=== PATIENT | female | born 1965 ===

== ENCOUNTER 2017-12-04 09:40 | Emergency (ER) | payer OTHER ==
[2017-12-04 09:40] VITALS: BMI 28.3
--- NOTE | 2017-12-04 09:57 | ED PDOC ---
Lower Extremity Pain/Injury Time Seen by Provider: 12/04/17 09:43 History Per: Patient Onset/Duration Of Symptoms: Other (3 weeks) Current Symptoms Are (Timing): Still Present Severity: Mild Pain Scale Rating Of: 2 Additional Complaint(s): s/p fx 5th phalanx right foot, seen in ED with +ve xrays. Still c/o pain Past Medical History Vital Signs: Last Vital Signs Temp 98.4 F 12/04/17 09:43 Pulse 82 12/04/17 09:43 Resp 18 12/04/17 09:43 BP 116/78 12/04/17 09:43 Pulse Ox 96 12/04/17 09:43 - Medical History PMH: HTN, Migraine Denies: Chronic Kidney Disease - Family History Family History: States: Unknown Family Hx - Immunization History Hx Tetanus Toxoid Vaccination: No Hx Influenza Vaccination: No Hx Pneumococcal Vaccination: No - Home Medications Home Medications: Ambulatory Orders Medication Instructions Recorded traMADol [Ultram] 50 mg PO TID PRN #12 tab 11/17/17 - Allergies Allergies/Adverse Reactions: Allergies Allergy/AdvReac Type Severity Reaction Status Date / Time aspirin Allergy RASH Verified 12/04/17 10:01 ibuprofen Allergy RASH Verified 12/04/17 10:01 Review of Systems Musculoskeletal: Positive for: Foot Pain Physical Exam - Physical Exam Appears: Positive for: Non-toxic, No Acute Distress Skin: Positive for: Normal Color, Warm, DRY Extremity: Positive for: Normal ROM. Negative for: Tenderness, Deformity, Swelling - ECG O2 Sat by Pulse Oximetry: 96 Disposition - Clinical Impression Clinical Impression: Toe fracture - Patient ED Disposition Is Patient to be Admitted: No Counseled Patient/Family Regarding: Studies Performed, Diagnosis, Need For Followup - Disposition Referrals: Podiatry Clinic [Outside] Disposition: Routine/Home Disposition Time: 11:17 Condition: FAIR Instructions: Toe Fracture Print Language: ROMANIAN
--- NOTE | 2017-12-04 10:36 | RAD ---
Date of service: 12/04/2017 PROCEDURE: Right foot HISTORY: s/p fx COMPARISON: Not available TECHNIQUE: Three views right foot FINDINGS: Healing fracture mid 5th proximal phalangeal diaphysis. There is a small amount of callus seen about the fracture. No other fracture is identified. The joint spaces and articular surfaces are preserved. No soft tissue abnormality is identified. IMPRESSION: Healing fracture mid 5th proximal phalangeal diaphysis.
[2017-12-04 11:58] VITALS: BP 133/87; PULSE 65; RESP 16; TEMP 97.8; O2SAT 100
== END 2017-12-04 11:55 | disposition home or self-care (01) ==
LOC: H.ER 09:40
DX: S92.901A Unspecified fracture of right foot, initial encounter for closed fracture (principal); Y92.89 Other specified places as the place of occurrence of the external cause; I10 Essential (primary) hypertension

== ENCOUNTER 2018-04-07 10:28 | Emergency (ER) | payer SELFPAY ==
[2018-04-07 10:28] VITALS: BMI 28.9
[2018-04-07 10:42] VITALS: RESP 18
--- NOTE | 2018-04-07 11:35 | ED PDOC ---
HPI: General Adult Time Seen by Provider: 04/07/18 11:00 Chief Complaint (Nursing): Back Pain Chief Complaint (Provider): Sinus pain and congestion History Per: Patient History/Exam Limitations: no limitations Onset/Duration Of Symptoms: Days (x5) Current Symptoms Are (Timing): Still Present Additional Complaint(s): 52 year old female, with a past medical history of HTN, presents to the ED complaining of sinus pain and congestion associated with sore throat and body aches for 5 days. Patient denies fever, cough, or vomiting. Past Medical History Reviewed: Historical Data, Nursing Documentation, Vital Signs Vital Signs: Last Vital Signs Temp 97.6 F 04/07/18 10:41 Pulse 83 04/07/18 10:41 Resp 18 04/07/18 10:41 BP 132/88 04/07/18 10:41 Pulse Ox 97 04/07/18 10:41 - Medical History PMH: HTN, Migraine Denies: Chronic Kidney Disease - Surgical History Surgical History: No Surg Hx - Family History Family History: States: Unknown Family Hx - Immunization History Hx Tetanus Toxoid Vaccination: No Hx Influenza Vaccination: No Hx Pneumococcal Vaccination: No - Home Medications Home Medications: Ambulatory Orders Medication Instructions Recorded Azithromycin [Z-Fredy] 250 mg PO DAILY #6 tab 03/31/18 Amoxicillin/Potassium Clav 1 tab PO TID #30 tab 04/07/18 [Augmentin 500 mg-125 mg] traMADol [Ultram] 50 mg PO Q8 #10 tab 04/07/18 - Allergies Allergies/Adverse Reactions: Allergies Allergy/AdvReac Type Severity Reaction Status Date / Time aspirin Allergy RASH Verified 04/07/18 10:49 ibuprofen Allergy RASH Verified 04/07/18 10:49 Review of Systems ROS Statement: Except As Marked, All Systems Reviewed And Found Negative Constitutional: Positive for: Other (Body aches). Negative for: Fever ENT: Positive for: Nose Congestion, Throat Pain (sore throat), Other (Sinus pain) Respiratory: Negative for: Cough Gastrointestinal: Negative for: Vomiting Physical Exam - Reviewed Nursing Documentation Reviewed: Yes Vital Signs Reviewed: Yes - Physical Exam Appears: Positive for: Non-toxic, No Acute Distress Head Exam: Positive for: ATRAUMATIC, NORMOCEPHALIC Skin: Positive for: Normal Color, Warm, Dry Eye Exam: Positive for: Normal appearance ENT: Positive for: Pharyngeal Erythema. Negative for: Tonsillar Exudate Neck: Positive for: Normal, Painless ROM Cardiovascular/Chest: Positive for: Regular Rate, Rhythm Respiratory: Positive for: Normal Breath Sounds. Negative for: Wheezing, Respiratory Distress Gastrointestinal/Abdominal: Positive for: Normal Exam, Soft. Negative for: Tenderness Back: Positive for: Normal Inspection. Negative for: L CVA Tenderness, R CVA Tenderness Extremity: Positive for: Normal ROM Neurologic/Psych: Positive for: Alert. Negative for: Motor/Sensory Deficits - ECG O2 Sat by Pulse Oximetry: 97 (RA) Pulse Ox Interpretation: Normal Medical Decision Making Medical Decision Making: Initial Plan: --Tramadol 50mg PO --Influenza A B stat Scribe Attestation: Documented by Jamarcus Ruelas acting as a scribe for Khoi Cochran MD. Provider Scribe Attestation: All medical record entries made by the Scribe were at my direction and personally dictated by me. I have reviewed the chart and agree that the record accurately reflects my personal performance of the history, physical exam, medical decision making, and the department course for this patient. I have also personally directed, reviewed, and agree with the discharge instructions and disposition. Disposition - Clinical Impression Clinical Impression: URI (upper respiratory infection) - Patient ED Disposition Is Patient to be Admitted: No Counseled Patient/Family Regarding: Studies Performed, Diagnosis, Need For Followup, Rx Given - Disposition Referrals: [facility] [Outside] Disposition: Routine/Home Disposition Time: 13:46 Condition: FAIR Prescriptions: Amoxicillin/Potassium Clav [Augmentin 500 mg-125 mg] 1 tab PO TID #30 tab traMADol [Ultram] 50 mg PO Q8 #10 tab Instructions: Bacterial Upper Respiratory Infection, Adult Forms: [employer] (Slovak) Print Language: SETSWANA
[2018-04-07 15:07] VITALS: BP 112/72; PULSE 68; TEMP 98; O2SAT 99
== END 2018-04-07 14:10 | disposition home or self-care (01) ==
LOC: H.ER 10:28
DX: J06.9 Acute upper respiratory infection, unspecified (principal); I10 Essential (primary) hypertension